=== PATIENT | female | born 1925 | race Caucasian/White ===

== ENCOUNTER 2017-01-14 23:27 | Emergency (ER) | payer MEDICARE, BC ==
[~2017-01-14 23:27] MED LIST: Sodium Chloride 0.9% 1,000 ML IV ONE
--- NOTE | 2017-01-14 23:28 | EDM.PDOC ---
ED HPI GENERAL MEDICAL PROBLEM - General Stated Complaint: FROM [facility] Time Seen by Provider: 01/14/17 23:26 Source of Information: Reports: Patient, Snf Records History Limitations: Reports: No Limitations - History of Present Illness INITIAL COMMENTS - FREE TEXT/NARRATIVE: Dx with bronchitis today taking ABX, low O2 sat tonight. Right Upper Abdomen Pain Score (Numeric/FACES): 5 - Related Data Allergies Allergy/AdvReac Type Severity Reaction Status Date / Time hydrochlorothiazide Allergy Cannot Verified 01/15/17 00:11 Remember lisinopril Allergy Cannot Verified 01/15/17 00:11 Remember Sulfa (Sulfonamide Allergy Cannot Verified 01/15/17 00:11 Antibiotics) Remember Home Meds: Home Meds Acetaminophen [Tylenol] 650 mg PO TID 11/28/14 [History] Atenolol 100 mg PO DAILY 11/28/14 [History] Calcium Carbonate/Vitamin D3 [Calcium 600 + D Tablet] 1 tab PO BID 11/28/14 [ History] Citalopram Hydrobromide [Celexa] 20 mg PO DAILY 11/28/14 [History] Dextran 70/Hypromellose [Artificial Tears] 1 drop EYEBOTH BID 11/28/14 [History] Esomeprazole [NexIUM] 1 cap PO DAILY 11/28/14 [History] Gabapentin [Neurontin] 300 mg PO BID 11/28/14 [History] Magnesium Oxide 250 mg PO BID 11/28/14 [History] Multivitamin [Multivitamins] 1 tab PO DAILY 11/28/14 [History] Potassium Chloride 40 meq PO DAILY 11/28/14 [History] guaiFENesin [Guaifenesin] 200 mg PO Q4H PRN 11/28/14 [History] Phenazopyridine [Pyridium] 100 mg PO TID PRN #15 tablet 12/04/14 [Rx] Acetaminophen [Tylenol] 650 mg PO Q6H PRN 08/30/15 [History] Loperamide HCl [Loperamide] 2 mg PO ASDIRECTED PRN 08/30/15 [History] Loratadine [Claritin] 10 mg PO ASDIRECTED PRN 08/30/15 [History] amLODIPine [Norvasc] 5 mg PO DAILY 08/30/15 [History] Aspirin 325 mg PO DAILY 01/14/17 [History] Bisacodyl [Dulcolax] 10 mg RECTAL DAILY PRN 01/14/17 [History] Calcium Carbonate [Tums] 500 mg PO ASDIRECTED PRN 01/14/17 [History] Levofloxacin [Levaquin] 500 mg PO ONETIME 01/14/17 [History] Magnesium Hydroxide [Milk of Magnesia] 2,400 mg PO DAILY PRN 01/14/17 [History] Vit C/E/Zn/Coppr/Lutein/Zeaxan [Preservision Areds 2 Softgel] 1 each PO BID [History] cloNIDine [Catapres] 0.1 mg PO Q12HR 01/14/17 [History] Saline Gel TOP BID PRN 01/15/17 [History] Past Medical History Other HEENT History: otitis media and cataract surgery bilaterally Other Cardiovascular History: atherosclerosis, stricture of artery Other OB/BYN History: 3 c-sections Other Musculoskeletal History: had polio as child 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 Neurological History: Reports: CVA Other Neuro History: trigeminal neuralgia Other Endocrine/Metabolic History: hypopotassemia, hyponatremia, hyposmolality, hypomagnesimia Other Oncologic History: right sided mastectomy - Past Surgical History Other Female Surgeries/Procedures: 3 c-sections Social & Family History - Family History Family Medical History: Noncontributory - Tobacco Use Smoking Status *Q: Never Smoker Second Hand Smoke Exposure: No - Recreational Drug Use Recreational Drug Use: No - Living Situation & Occupation Living situation: Reports: , Extended Care Facility Occupation: Disabled ED ROS GENERAL - Review of Systems Review Of Systems: ROS reveals no pertinent complaints other than HPI. ED EXAM, GENERAL - Physical Exam Exam: See Below Exam Limited By: No Limitations General Appearance: Alert, WD/WN, Mild Distress, Other (discomfort) Ears: Hearing Grossly Normal Throat/Mouth: Normal Voice, No Airway Compromise Head: Atraumatic Neck: Non-Tender, Full Range of Motion Respiratory/Chest: No Respiratory Distress, No Accessory Muscle Use, Rhonchi. No: Decreased Breath Sounds Cardiovascular: Regular Rate, Rhythm GI/Abdominal: Soft, Guarding, Tender, Other (right side tenderness to deep palpation). No: Distended, Rigid, Rebound Extremities: No Pedal Edema Neurological: Alert, Oriented, Normal Cognition, No Motor/Sensory Deficits Psychiatric: Normal Affect, Normal Mood Skin Exam: Warm, Dry, Normal Color Lymphatic: No Adenopathy Course - Vital Signs Last Recorded V/S: Last Vital Signs Temp 36.3 C 01/14/17 23:25 Pulse 67 01/14/17 23:25 Resp 20 01/14/17 23:25 BP 137/66 01/14/17 23:25 Pulse Ox 96 01/14/17 23:25 - Orders/Labs/Meds Orders: Active Orders 24 hr Category Date Time Status Abdomen Pelvis wo Cont [CT] Urgent Exams 01/15/17 00:42 Taken CULTURE BLOOD [BC] Stat Lab 01/14/17 23:58 Results Sodium Chloride 0.9% [Normal Saline] 1,000 ml Med 01/15/17 00:30 Active IV ASDIRECTED Medication Orders Sodium Chloride (Normal Saline) 1,000 mls @ 50 mls/hr IV ASDIRECTED YENNI Last Admin: 01/15/17 00:12 Dose: 50 mls/hr Labs: Laboratory Tests 01/14/17 01/14/17 01/14/17 Range/Units 23:58 23:58 23:58 WBC 10.6 H (5.0-10.0) 10^3/uL RBC 4.27 (4.2-5.4) 10^6/uL Hgb 13.0 D (12.0-16.0) g/dL Hct 40.8 (37.0-47.0) % MCV 95.6 D (80-100) fL MCH 30.4 (27.0-34.0) pg MCHC 31.9 L (33.0-35.0) g/dL Plt Count 244 (150-450) 10^3/uL Neut % (Auto) 58.8 (42.2-75.2) % Lymph % (Auto) 29.1 (20.5-50.1) % [place] % (Auto) 10.3 H (2-8) % Eos % (Auto) 1.2 (1.0-3.0) % Baso % (Auto) 0.6 (0.0-1.0) % Sodium 142 D (135-145) mmol/L Potassium 5.3 H (3.6-5.0) mmol/L Chloride 100 L (101-111) mmol/L Carbon Dioxide 30.0 (21.0-31.0) mmol/L Anion Gap 17.3 BUN 20 H (7-18) mg/dL Creatinine 0.7 (0.6-1.3) mg/dL Est Cr Clr Drug Dosing TNP Estimated GFR (MDRD) > 60 BUN/Creatinine Ratio 28.57 Glucose 118 H (74-105) mg/dL Lactic Acid 2.1 (0.5-2.2) mmol/L Calcium 9.0 (8.4-10.2) mg/dl Total Bilirubin 0.8 (0.2-1.0) mg/dL AST 24 (10-42) IU/L ALT 13 (10-60) IU/L Alkaline Phosphatase 70 (42-121) IU/L B-Natriuretic Peptide 162 H (0-100) pg/ml Total Protein 6.7 (6.7-8.2) g/dl Albumin 3.1 L (3.2-5.5) g/dl Globulin 3.6 Albumin/Globulin Ratio 0.86 Meds: Medications Generic Name Dose Route Start Last Admin Trade Name Freq PRN Reason Stop Dose Admin Sodium Chloride 1,000 mls @ 50 mls/hr 01/15/17 00:30 01/15/17 00:12 Normal Saline IV 50 mls/hr ASDIRECTED YENNI Administration Discontinued Medications Generic Name Dose Route Start Last Admin Trade Name Freq PRN Reason Stop Dose Admin Sodium Chloride 1,000 mls @ 500 mls/hr 01/14/17 23:25 Normal Saline IV 01/15/17 01:24 .BOLUS ONE Morphine Sulfate 1 mg 01/15/17 02:54 01/15/17 03:05 Morphine IVPUSH 01/15/17 02:55 1 mg ONETIME ONE Administration - Re-Assessments/Exams Free Text/Narrative Re-Assessment/Exam: 01/15/17 03:03 results discussed with Sheri Almaraz the daughter who states Pt is level II but uncertain about total comfort measure without surgical consult. states she has to contact the other sibblings who will call me on likelyhood of transf to where they will be at. 01/15/17 04:11 tried to call Crow Mai @ 04;08 no answer. 01/15/17 05:04 talked to Crow who states his brother Chadwick is on his way here. 01/15/17 06:[address] Fleming @ who kindly accepted pt. Departure - Departure Time of Disposition: 06:26 Disposition: DC/Tfer to Acute Hospital 02 Condition: Fair Clinical Impression: Intestinal adhesions, Atelectasis of right lung Abdominal pain Qualifiers: Abdominal location: right upper quadrant Qualified Code(s): R10.11 - Right upper quadrant pain - Discharge Information Forms: Interfacility Transfer EMTALA - My Orders Last 24 Hours: My Active Orders 01/14/17 23:58 CULTURE BLOOD [BC] Stat 01/15/17 00:30 Sodium Chloride 0.9% [Normal Saline] 1,000 ml IV ASDIRECTED 01/15/17 00:42 Abdomen Pelvis wo Cont [CT] Urgent - Assessment/Plan Last 24 Hours: My Active Orders 01/14/17 23:58 CULTURE BLOOD [BC] Stat 01/15/17 00:30 Sodium Chloride 0.9% [Normal Saline] 1,000 ml IV ASDIRECTED 01/15/17 00:42 Abdomen Pelvis wo Cont [CT] Urgent
[2017-01-14 23:32] VITALS: BP 137/66
[2017-01-15 00:29] LABS: CHLORIDE,CL 100 mmol/L (101-111); SODIUM,NA 142 mmol/L (135-145)
[2017-01-15] MEDS ORDERED: Sodium Chloride 0.9% 1,000 ML IV SCH (00:30)
[2017-01-15] MEDS ORDERED: Morphine 2 MG/ML Syringe IVPUSH ONE (02:54)
== END 2017-01-15 07:10 ==
LOC: DL.ED 23:27
DX: K66.0 Peritoneal adhesions (postprocedural) (postinfection) (principal); J98.11 Atelectasis; Z88.8 Allergy status to other drugs, medicaments and biological substances; Z88.2 Allergy status to sulfonamides; Z79.899 Other long term (current) drug therapy
CPT/HCPCS: 36415; 71010; 74000; 74176; 80053; 83605; 83880; 85025; 87040; 96361; 96374; 99285; J2270; J7030; 99284